=== PATIENT | female | born 1950 | race Caucasian/White ===

== ENCOUNTER 2018-10-03 00:04 | Emergency (ER) | payer OTHER ==
[~2018-10-03] VITALS: Ht 162.6 cm; Wt 61.2 kg
[~2018-10-03 00:04] MED LIST: HYDR-4100 PO
--- NOTE | 2018-10-03 00:14 | NUR ---
Patient to ER bed 6 to gown for evaluation. Side rails up. Report given to Keenan LOPES.
--- NOTE | 2018-10-03 00:15 | NUR ---
Ambulatory to ED with URI symptoms. Worsening cough since monday. Subjective fevers and chills. -CP -SOB -N/V.
[2018-10-03 00:19] VITALS: BP_SYST 151
--- NOTE | 2018-10-03 00:20 | NUR ---
ED MD Bradley bedside assessing patient.
[2018-10-03] MEDS: IPRATROPIUM/ALBUTEROL SULFATE 3 ML AMPUL.NEB (DUONEB) INH ONE (00:46)
[2018-10-03 01:14] VITALS: BP_SYST 144
[2018-10-03] MEDS: PREDNISONE 20 MG TABLET PO ONE (01:14)
--- NOTE | 2018-10-03 01:14 | NUR ---
Patient given written and verbal discharge instructions and verbalizes understanding. ER MD discussed with patient the results and treatment provided. Patient in stable condition. ID arm band removed. Rx of prednisone and albuterol given. Patient educated on pain management and to follow up with PMD. Pain Scale 0/10. Opportunity for questions provided and answered. Medication side effect fact sheet provided.
== END 2018-10-03 01:14 | disposition home or self-care (01) ==
LOC: SED 00:04
DX: J06.9 Acute upper respiratory infection, unspecified (principal); I10 Essential (primary) hypertension; G43.909 Migraine, unspecified, not intractable, without status migrainosus; E78.00 Pure hypercholesterolemia, unspecified; Z88.2 Allergy status to sulfonamides
CPT/HCPCS: 71045; 94640; 99283; J7512; J7620

== ENCOUNTER 2019-09-08 00:03 | Emergency (ER) | payer OTHER ==
[~2019-09-08] VITALS: Ht 162.6 cm; Wt 63.5 kg
[2019-09-08 00:25] VITALS: BP_SYST 118
--- NOTE | 2019-09-08 00:25 | NUR ---
Patient to ER bed 1 to gown for evaluation. Side rails up. ASSUMED CARE OF PT.
--- NOTE | 2019-09-08 00:25 | NUR ---
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 OBVIOUS DEFORMITY NOTED. NO LOC.
--- NOTE | 2019-09-08 00:37 | NUR ---
XRAY AT BEDSIDE
--- NOTE | 2019-09-08 01:10 | NUR ---
ER Dr. LINDER at bedside examining patient.
[2019-09-08 02:15] VITALS: BP_SYST 118
--- NOTE | 2019-09-08 02:15 | NUR ---
Patient given written and verbal discharge instructions and verbalizes understanding. DR. NIYAH KELLY MD discussed with patient the results and treatment provided. Patient in stable condition. ID arm band removed. Rx of given. Patient educated on pain management and to follow up with PMD. Pain Scale 2/10. Opportunity for questions provided and answered. Medication side effect fact sheet provided.
== END 2019-09-08 02:15 | disposition home or self-care (01) ==
LOC: SED 00:03
DX: S52.501A Unspecified fracture of the lower end of right radius, initial encounter for closed fracture (principal); I10 Essential (primary) hypertension; Z88.2 Allergy status to sulfonamides; Z88.8 Allergy status to other drugs, medicaments and biological substances; W18.39XA Other fall on same level, initial encounter; Y93.89 Activity, other specified; Y92.89 Other specified places as the place of occurrence of the external cause; Y99.8 Other external cause status
CPT/HCPCS: 99283